=== PATIENT | female | born 1945 | race Caucasian/White ===

== ENCOUNTER 2021-02-19 15:18 | Emergency (ER) | payer MEDICARE, BC ==
--- NOTE | 2021-02-19 17:02 | CT ---
PROCEDURE INFORMATION: Exam: CT Head Without Contrast Exam date and time: 02/19/2021 4:18 PM Age: 75 years old Clinical indication: Other: Fall; Additional info: Fall hit back of head TECHNIQUE: Imaging protocol: Computed tomography of the head without contrast. Radiation optimization: All CT scans at this facility use at least one of these dose optimization techniques: automated exposure control; mA and/or kV adjustment per patient size (includes targeted exams where dose is matched to clinical indication); or iterative reconstruction. COMPARISON: No relevant prior studies available. FINDINGS: Brain: There is no significant midline shift. There are rounded areas of mildly decreased attenuation in the basal ganglia on both sides. There is no evidence of acute hemorrhage within the brain parenchyma or the subarachnoid space. Cerebral ventricles: The ventricular system is normal in size and configuration. Paranasal sinuses: The sinuses are normal. Mastoid air cells: The mastoid sinuses are normal. Vasculature: There is heavy calcification of the vertebral and internal carotid arteries. Bones/joints: The skull is normal. Soft tissues: The extracranial soft tissues are normal. IMPRESSION: Bilateral lacunar infarcts.
--- NOTE | 2021-02-19 17:04 | CR ---
PROCEDURE INFORMATION: Exam: XR Left Femur Exam date and time: 02/19/2021 4:07 PM Age: 75 years old Clinical indication: Other: Fall/pain; Additional info: Leg pain TECHNIQUE: Imaging protocol: XR Left femur. Views: 2 views. COMPARISON: No relevant prior studies available. FINDINGS: Bones/joints: The alignment of the joints is anatomic and the joint spaces are maintained. There is no evidence of acute fracture. There are no lytic or blastic skeletal lesions present. There is a right total hip prosthesis which appears to be in anatomic alignment. Soft tissues: No soft tissue swelling is identified. No radio-opaque foreign body seen. Vasculature: There is heavy atherosclerosis of the arteries. IMPRESSION: No acute process.
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
[2021-02-19 18:20] LABS: ANION GAP 14.5 mEq/L (7-13)
--- NOTE | 2021-02-19 18:24 | CR ---
PROCEDURE INFORMATION: Exam: XR Chest Exam date and time: 02/19/2021 6:01 PM Age: 75 years old Clinical indication: Other: Syncope TECHNIQUE: Imaging protocol: XR of the chest. Views: 1 view. COMPARISON: No relevant prior studies available. FINDINGS: Lungs: Unremarkable. No consolidation. Pleural spaces: Unremarkable. No pleural effusion. No pneumothorax. Heart/Mediastinum: Unremarkable. No cardiomegaly. Bones/joints: Unremarkable. IMPRESSION: No acute findings.
[2021-02-19] MEDS ORDERED: Sodium Chloride 0.9% 1,000 ML IV ONE (19:14)
[2021-02-19 20:13] LABS: CORONAVIRUS COVID-19 NAA NEGATIVE (NEGATIVE)
--- NOTE | 2021-02-19 22:10 | US ---
PROCEDURE INFORMATION: Exam: US Duplex Left Lower Extremity Veins, Limited Exam date and time: 02/19/2021 8:37 PM Age: 75 years old Clinical indication: Pain; Leg, upper; Left; Additional info: Leg pain, L leg swelling elevated d dimer TECHNIQUE: Imaging protocol: Real-time Duplex ultrasound of the Left Lower Extremity with 2-D cade scale, color Doppler flow and spectral waveform analysis with image documentation. Limited exam focused on the left lower extremity veins. Total images: 28 COMPARISON: CR Femur Min 2V Lt 02/19/2021 4:07 PM FINDINGS: Left deep veins: Unremarkable. The common femoral, femoral, proximal profunda femoral and popliteal veins are patent without thrombus. Normal Doppler waveforms. Normal compressibility and/or augmentation response. Left superficial veins: Unremarkable. Saphenofemoral junction is patent without thrombus. Soft tissues: Mild non-specific soft tissue edema in the left lower leg. IMPRESSION: No evidence of deep vein thrombosis.
== END 2021-02-19 21:30 | disposition home or self-care (01) ==
LOC: DL.ED 15:18
DX: E86.0 Dehydration (principal); M54.32 Sciatica, left side; I25.10 Atherosclerotic heart disease of native coronary artery without angina pectoris; E78.00 Pure hypercholesterolemia, unspecified; I25.2 Old myocardial infarction; K21.9 Gastro-esophageal reflux disease without esophagitis; E11.9 Type 2 diabetes mellitus without complications; E66.9 Obesity, unspecified; Z72.0 Tobacco use; Z95.5 Presence of coronary angioplasty implant and graft; Z20.822 Contact with and (suspected) exposure to COVID-19; Z79.82 Long term (current) use of aspirin; Z79.899 Other long term (current) drug therapy; Z68.38 Body mass index [BMI] 38.0-38.9, adult
CPT/HCPCS: 0240U; 36415; 70450; 71045; 73552; 80053; 81003; 83605; 83735; 84100; 84443; 84484; 85025; 85379; 87040; 93005; 93971; 99284; J7030

== ENCOUNTER 2023-09-29 05:21 | Day surgery (SDC) | payer MEDICARE, BC ==
[2023-09-29] MEDS: Dextrose 5%-0.45% NaCl 1,000 ML IV SCH (06:16)
[2023-09-29] MEDS ORDERED: Midazolam 1 MG/ML 2 ML SDV ONE (06:19)
[2023-09-29] MEDS ORDERED: fentaNYL 100 MCG/2 ML SDV ONE (06:19)
[2023-09-29] MEDS: fentaNYL 100 MCG/2 ML SDV IV ONE ×3 (06:27→06:33)
[2023-09-29] MEDS: Midazolam 1 MG/ML 2 ML SDV IV ONE ×7 (06:29→07:00)
== END 2023-09-29 08:20 | disposition home health service (06) ==
LOC: DL.ENDO 05:21
PROVIDERS: ATTEND Internal Medicine Gastroenterology
DX: K57.30 Diverticulosis of large intestine without perforation or abscess without bleeding (principal); K52.9 Noninfective gastroenteritis and colitis, unspecified; I10 Essential (primary) hypertension; E11.9 Type 2 diabetes mellitus without complications; E78.5 Hyperlipidemia, unspecified; I25.10 Atherosclerotic heart disease of native coronary artery without angina pectoris
CPT/HCPCS: 88305; J2250; J3010; J7799

== ENCOUNTER 2023-12-05 20:40 | Emergency (ER) | payer MEDICARE, BC ==
[2023-12-05] MEDS: Dexamethasone 4 MG/ML SDV IVPUSH ONE (19:48)
[2023-12-05] MEDS: Iopamidol 755 Mg/ML 100 ML Bottle IVPUSH ONE (20:00)
[2023-12-05] MEDS: Etomidate 2 MG/ML 10 ML SDV IVPUSH ONE (20:00)
[2023-12-05] MEDS: Rocuronium 100 MG/10 ML MDV IVPUSH ONE (20:00)
[2023-12-05 20:01] LABS: BASOPHILS PERCENT AUTO 0.2 % (0.0-1.0); EOSINOPHILS PERCENT AUTO 1.4 % (1.0-3.0); HEMATOCRIT 40.9 % (37.0-47.0); HEMOGLOBIN 13.1 g/dL (12.0-16.0); LYMPHOCYTES PERCENT AUTO 41.8 % (20.5-50.1); MEAN CORPUSCULAR HEMOGLOBIN 28.7 pg (27.0-34.0); MEAN CORPUSCULAR VOLUME 89.5 fL (80-100); MONOCYTES PERCENT AUTO 6.4 % (2-8); NEUTROPHILS PERCENT AUTO 50.2 % (42.2-75.2); PLATELET COUNT,PLT 421 10^3/uL (150-450); RED BLOOD CELL COUNT 4.57 10^6/uL (4.2-5.4); WHITE BLOOD CELL COUNT,WBC 18.9 10^3/uL (5.0-10.0)
[2023-12-05 20:07] LABS: LACTIC ACID 3.8 mmol/L (0.4-2.0)
[2023-12-05] MEDS: Midazolam 50 MG in Sodium Chloride 0.9% 40 ML IV SCH (20:10)
[2023-12-05] MEDS: fentaNYL 500 MCG in Sodium Chloride 0.9% 50 ML IV SCH (20:10)
[2023-12-05 20:11] LABS: A/G RATIO 0.8; ALANINE AMINOTRANSFERASE,ALT 14 U/L (14-59); ALBUMIN 3.5 g/dL (3.4-5.0); ALKALINE PHOSPHATASE 92 U/L (46-116); ANION GAP 11.9 mEq/L (7-13); ASPARTATE AMNIOTRANSFERASE,AST 16 U/L (15-37); BILIRUBIN TOTAL 0.4 mg/dL (0.2-1.0); BLOOD UREA NITROGEN,BUN 15 mg/dL (7-18); BUN/CREATININE RATIO 12.5 (No establ ref range); C-REACTIVE PROTEIN 0.95 ng/dL (<=0.50); CALCIUM 9.2 mg/dL (8.5-10.1); CARBON DIOXIDE,CO2 32 mmol/L (21-32); CHLORIDE,CL 96 mmol/L (98-107); GLUCOSE RANDOM 292 mg/dL (70-99); MAGNESIUM 1.9 mg/dL (1.8-2.4); POTASSIUM,K 2.9 mmol/L (3.5-5.1); PROTEIN TOTAL,TP 7.7 g/dL (6.4-8.2); SODIUM,NA 137 mmol/L (136-145)
[2023-12-05 20:12] LABS: ESTIMATED GFR 46 mL/min (>=60)
[2023-12-05 20:13] LABS: O2 DELIVERY DEVICE VENTILATOR
[2023-12-05] MEDS: Albuterol/Ipratropium 3.0-0.5 MG/3 ML Neb Soln NEB ONE (20:15)
[2023-12-05] MEDS: Magnesium Sulfate/Water Premix 2 GM in Premix Bag 1 BAG IV ONE ×2 (20:15→21:11)
[2023-12-05 20:22] LABS: BASE EXCESS VENOUS -0.5 mmol/l ((-2)-(+3)); BICARBONATE,VENOUS 30 mmol/l (19-25); O2 SATURATION VENOUS 99.5 % (60-80); PCO2 VENOUS 82 mmHg (41-51); PH,VENOUS 7.19 (7.31-7.41); PO2 VENOUS 215 mmHg (35-42)
[~2023-12-05 20:40] MED LIST: D5 1/2 NS w/ 40 mEq/L KCl 1,000 ML IV SCH; Sodium Chloride 0.9% 10 ML Syringe FLUSH PRN; fentaNYL 250 MCG/5 ML SDV ONE
[2023-12-05 21:26] LABS: BASE EXCESS VENOUS 1.5 mmol/l ((-2)-(+3)); BICARBONATE,VENOUS 30 mmol/l (19-25); O2 DELIVERY DEVICE VENTILATOR; O2 SATURATION VENOUS 86.9 % (60-80); PH,VENOUS 7.27 (7.31-7.41); PO2 VENOUS 60 mmHg (35-42)
[2023-12-05 21:28] LABS: PCO2 VENOUS 67 mmHg (41-51)
[2023-12-05] MEDS: cefTRIAXone 2 GM Vial IVPUSH ONE (21:29)
[2023-12-05] MEDS: D5 1/2 NS w/ 20 mEq/L KCl 1,000 ML ONE (21:49)
== END 2023-12-05 22:27 | disposition home or self-care (01) ==
LOC: DL.ED 20:40
DX: J96.01 Acute respiratory failure with hypoxia (principal); I25.10 Atherosclerotic heart disease of native coronary artery without angina pectoris; I12.9 Hypertensive chronic kidney disease with stage 1 through stage 4 chronic kidney disease, or unspecified chronic kidney disease; N18.9 Chronic kidney disease, unspecified; I25.2 Old myocardial infarction; E78.00 Pure hypercholesterolemia, unspecified; K21.9 Gastro-esophageal reflux disease without esophagitis; E11.42 Type 2 diabetes mellitus with diabetic polyneuropathy; E66.9 Obesity, unspecified; Z95.5 Presence of coronary angioplasty implant and graft; J44.9 Chronic obstructive pulmonary disease, unspecified; Z79.82 Long term (current) use of aspirin; Z79.899 Other long term (current) drug therapy
CPT/HCPCS: 31500; 36415; 43752; 51702; 71045; 71275; 80053; 82803; 83605; 83735; 83880; 84484; 85025; 86140; 87040; 93005; 93010; 94640; 96365; 96366; 96368; 96375; 99285; 99291; J0696; J1100; J2250; J3010; J3475; J3480; J3490; Q9967; U0002; J7620-GY